=== PATIENT | female | born 1980 | race Caucasian/White ===

== ENCOUNTER 2021-01-26 14:46 | Outpatient (CLI) | payer OTHER, SELFPAY ==
--- NOTE | ~2021-01-26 | US_ITS ---
EXAMINATION: US thyroid DATE: 01/26/2021 15:28 INDICATION: Nontoxic goiter, unspecified. TECHNIQUE: Multiple ultrasound images of the thyroid were obtained. COMPARISON: None. FINDINGS: The right thyroid lobe measures 5.1 x 1.5 x 1.7 cm. The left thyroid lobe measures 4.8 x 1.3 x 1.7 c m. In the right thyroid lobe, there is a 9 mm mixed cystic and solid, hypoechoic, zimnj-emwa-gaah no dule with smooth margin without echogenic foci (TI-RADS TR3). In the left thyroid lobe, there is a 6 mm solid, hypoechoic, gordf-xjbm-qxlk nodule with lobular margin without echogenic foci (TR4). IMPRESSION: 1. Small thyroid nodules, likely not clinically significant. No follow-up is needed. Reviewed, dictated and finalized at location A. L REGULATOR IMPRESSION: 1. Small thyroid nodules, likely not clinically significant. No follow-up is ne eded.
== END 2021-01-26 14:47 | disposition home or self-care (01) ==
PROVIDERS: PCP Family Medicine; Visit Provider Family Medicine
DX: E04.2 Nontoxic multinodular goiter (principal); R53.82 Chronic fatigue, unspecified; F41.8 Other specified anxiety disorders; F90.9 Attention-deficit hyperactivity disorder, unspecified type; U09.9 Post COVID-19 condition, unspecified
CPT/HCPCS: 76536

== ENCOUNTER 2022-08-07 10:08 | Outpatient (CLI) | payer OTHER, SELFPAY | END 2022-08-07 10:09 | disposition home or self-care (01) | PROVIDERS: PCP Family Medicine; Visit Provider Family Medicine | DX: M79.671 Pain in right foot (principal); M79.89 Other specified soft tissue disorders | CPT/HCPCS: 73630 ==

== ENCOUNTER 2024-11-19 08:20 | Outpatient (CLI) | payer BC, SELFPAY ==
--- NOTE | ~2024-11-19 | MM_ITS ---
EXAMINATION: MM scrn denisha implant BI w darshan HISTORY: Screening mammogram TECHNIQUE: Craniocaudal and mediolateral oblique 3-D tomosynthesis images with implant displacement and synthetic 2-D images were generated. Craniocaudal and mediolateral oblique views of the breasts without implant displacement were obtained using full field digital mammography. CAD analysis was submitted and interpreted. COMPARISON: No prior mammogram is available for comparison at this institution. BREAST PARENCHYMAL COMPOSITION: Dense: The breasts are heterogeneously dense, which may obscure small masses FINDINGS: There are small low-density masses in both breasts. There are no suspicious calcifications or architectural distortion. There are bilateral subpectoral breast implants. IMPRESSION: 1. Bilateral low density masses. 2. Comparison to prior outside mammograms recommended to assess stability. BI-RADS Category 0: Incomplete: Needs additional imaging evaluation. Reviewed, dictated and finalized at location B.
--- OUTSIDE RECORDS SUMMARY | 2024-11-19 08:29 | XMS_ITS | Clinical Summary ---
Author Organization [facility] Address [address] [place] [address] Care Team Providers Care Medical Specialist Name Role Phone Unavailable Primary Care Provider Unavailabl e Source Comments [facility],non-owned Affiliates and Associated Physician Practices is amultiple site organization consisting of ambulatory clinics and hospital sitesin [place], [place], [place] and [place]. This disclosure is being madepursuant to the Care Everywhere program and may not contain all information available regarding this patient. Last updated 17.[facility] Allergies No known active allergies Medications * Be aware that medications may not be up to date on this document. Alwaysverify current medications with the patient. No known medications Social History Tobacco Use Types Packs/Day Years Used Date Smoking Tobacco: Never Comments Unknown Sex and Gender Information Value Date Recorded Sex Assigned at Not on file Legal Sex Female 1:08 PM CDT Gender Identity Not on file Sexual Orientation Not on file Last Filed Vital Signs Vital Sign Reading Time Taken Comments Blood Pressure 120/70 07/12/2017 3:03 PM CDT Pulse 101 07/12/2017 3:03 PM CDT Temperature 36.8 C (98.3 F) 07/12/2017 3:03 PM CDT Respiratory Rate - - Oxygen Saturation - - Inhaled Oxygen Concentration - - Weight 63.5 kg (140 lb) 07/12/2017 3:03 PM CDT Height 157.5 cm (5' 2) 07/12/2017 3:03 PM CDT Body Mass Index 25.61 07/12/2017 3:03 PM CDT Plan of Treatment Health Maintenance Due Date Last Done Comments COLOGUARD (AGES 45-75) - COL ON CA SCREENING 1978 COLON MONITORING 1978 COLONOSCOPY - COLON CA SCREENING 1978 CT COLONOGRAPHY - COLON CA SCREENING 1978 Colorectal Cancer Screening 1978 FIT - COLON CA SCREENING 1978 FLEX SIG - COLON CA SCREENING 1978 LIPID TESTING 1978 MAMMOGRAM 1978 HIV SCREENING 1993 HEPATITIS C SCREENING 07/31/1996 DTAP/TDAP/TD VACCINES (1 - Tdap) 1997 HEPATITIS B VACCINE (1 of 3 - 19+ 3-dose series) 1997 DEPRESSION SCREENING 02/19/2024 COVID-19 VACCINE (1 - 2023-2 5 season) 2024 INFLUENZA VACCINE (#1) 2024 ZOSTER VACCINE (1 of 2) 2028 HIB VACCINE Aged Out No longer eligi ble based on patient's age to complete this topic HPV VACCINE Aged Out No longer eligi ble based on patient's age to complete this topic MENINGOCOCCAL (Group B) VACC INE SHARED DECISION-MAKING Aged Out No longer eligibl e based on patient's age to complete this topic MENINGOCOCCAL GROUPS A/C/Y/W VACCINE Aged Out No longer eligible b ased on patient's age to complete this topic PNEUMOCOCCAL VACCINE Aged Out No long er eligible based on patient's age to complete this topic Insurance COUNT INCLUDES THE [facility]
--- OUTSIDE RECORDS SUMMARY | 2024-11-19 08:29 | XMS_ITS | Clinical Summary ---
Author Organization [facility] Address [address] [address] Care Team Providers Care Family Advocate Name Role Phone Unavailable Primary Care Provider Unavailabl e Allergies No known active allergies Medications L. acidophilus/Bifi d. animalis (DAILY PROBIOTIC ORAL) Take by mouth. Active Active Problems No known active problems Immunizations Immunization Administration Dates Next Due (VAHE) COVID-19 VACCINE - EMERGENCY USE AUTHORIZATION, AD26,COV2S(PF) 0.5 ML IM SUSP 05/27/2020 Family History Medical History Relation Name Comments No Known Problems Daughter No Known Problems Father No Known Problems Mother No Known Problems Son Relation Name Status Comments Brother Alive Daughter Alive Father Alive Maternal Grandfather Maternal Grandmother Alive Mother Alive Paternal Grandfather Paternal Grandmother Sister 1 Alive Sister 2 Alive Sister 3 Alive Son Alive Social History Tobacco Use Types Packs/Day Years Used Date Smoking Tobacco: Former Smokeless Tobacco: Never Alcohol Use Standard Drinks/Week Comments Yes 0 (1 standard drink = 0.6 oz pur e alcohol) occasionally Comments Unknown Sex and Gender Information Value Date Recorded Sex Assigned at Not on file Legal Sex Female 9:45 AM CDT Gender Identity Not on file Sexual Orientation Not on file Last Filed Vital Signs Vital Sign Reading Time Taken Comments Blood Pressure 106/64 08/03/2020 2:09 PM CDT Pulse 84 08/03/2020 2:09 PM CDT Temperature 36.8 C (98.2 F) 08/03/2020 2:09 PM CDT Respiratory Rate 18 08/03/2020 2:09 PM CDT Oxygen Saturation 99% 08/03/2020 2:09 PM CDT Inhaled Oxygen Concentration - - Weight 94.8 kg (209 lb) 08/03/2020 2:09 PM CDT Height 157.5 cm (5' 2) 08/03/2020 2:09 PM CDT Body Mass Index 38.23 08/03/2020 2:09 PM CDT Plan of Treatment Health Maintenance Due Date Last Done Comments DTAP/TDAP/TD VACCINES (1 - Tdap) 1997 HEPATITIS B VACCINES (1 of 3 - 19+ 3-dose series) 1997 HPV/Cotest (21-29) 08/06/1999 CERVICAL CANCER SCREENING 2008 HPV/Cotest (30-65) 2008 PAP SMEAR 2008 BREAST CANCER SCREENING 2018 COLORECTAL SCREENING 08/06/2023 Colorectal Cancer Screening 08/06/2023 FIT-DNA Q 3 years 08/06/2023 FIT/FOBT Q 1 year 08/06/2023 Flex Sig/CT Colonography Q 5 years 08/06/2023 INFLUENZA VACCINE (#1) 2024 COVID-19 Vaccine (2 - 2024-2 6 season) 2024 05/27/2020 HPV VACCINES Aged Out No longer eligi ble based on patient's age to complete this topic Insurance [facility] OPT[employer] PPO [id number]
--- OUTSIDE RECORDS SUMMARY | 2024-11-19 08:29 | XMS_ITS | Clinical Summary ---
Author Organization [facility] Address [address] [place] [id number] Phone Care Team Providers Care Dairy Clerk Name Role Phone Branden Romano MD Primary Care Provider [phone] Allergies No known active allergies Medications Probiotic Product (PROBIOTIC-10 PO) Take by mouth. Active Immunizations Immunization Administration Dates Next Due Covid-19 Vaccine, Vector-nr, Rs-ad26, Pf, 0.5 Ml ([employer]) 05/27/2020 Social History Tobacco Use Types Packs/Day Years Used Date Smoking Tobacco: Never Smokeless Tobacco: Never Alcohol Use Standard Drinks/Week Comments Yes 0 (1 standard drink = 0.6 oz pur e alcohol) Occasionally Sexually Active Control Partners Comments Yes Male Comments No Sex and Gender Information Value Date Recorded Sex Assigned at Not on file Legal Sex Female 1:25 PM CDT Gender Identity Not on file Sexual Orientation Not on file Last Filed Vital Signs Vital Sign Reading Time Taken Comments Blood Pressure 106/84 09/21/2020 3:18 PM CDT Pulse 72 09/21/2020 3:18 PM CDT Temperature 36.2 C (97.2 F) 09/21/2020 3:18 PM CDT Respiratory Rate 18 09/21/2020 3:18 PM CDT Oxygen Saturation 99% 09/21/2020 3:18 PM CDT Inhaled Oxygen Concentration - - Weight 90.7 kg (200 lb) 09/21/2020 3:18 PM CDT Height 157.5 cm (5' 2) 09/21/2020 3:18 PM CDT Body Mass Index 36.58 09/21/2020 3:18 PM CDT Plan of Treatment Health Maintenance Due Date Last Done Comments Hepatitis C Virus (HCV) Screening 1978 TdaP Immunization 1978 Hepatitis B Immunization (1 of 3 - 19+ 3-dose series) 1997 Pap Smear 08/06/1999 Cervical Cancer Screening (CCS) 2008 HPV/Cotest 2008 Cologuard 08/06/2023 Colonoscopy 08/06/2023 Colorectal Cancer Screening 08/06/2023 Immunochemical Fecal Occult Blood 08/06/2023 Influenza Immunization (#1) 2024 SARS-COV-2 Immunization (3 - 2024- season) 2024 12/30/2020, 05/27/2020 Respiratory Syncytial Virus (RSV) Immunization (Adult) (1 - 1-dose 75+ series) 2053 Human Papillomavirus (HPV) Immunization Aged Out No longer eligible b ased on patient's age to complete this topic Meningococcal Immunization (ACWY) Aged Out No longer eligible b ased on patient's age to complete this topic Pneumococcal Immunization Combined Aged Out No longer eligible b ased on patient's age to complete this topic Rotavirus Immunization Aged Out No lo nger eligible based on patient's age to complete this topic Insurance Care Teams Dairy Clerk Relationship Specialty Start Date End Date Branden Romano MD [address] [place] [address] PCP - General Internal Medicine 09/21/20
== END 2024-11-19 08:21 | disposition home or self-care (01) ==
LOC: CHSIMG 08:23
PROVIDERS: PCP Internal Medicine; Visit Provider Obstetrics & Gynecology
DX: Z12.31 Encounter for screening mammogram for malignant neoplasm of breast (principal); R92.323 Mammographic fibroglandular density, bilateral breasts
CPT/HCPCS: 77063; 77067